=== PATIENT | male | born 1985 | race Two or more races ===

== ENCOUNTER 2023-04-23 19:15 | Inpatient (IN) | payer OTHER ==
[~2023-04-23] VITALS: Ht 180.3 cm; Wt 109.1 kg
[2023-04-23] MEDS ORDERED: METF-1185 PO (19:47)
[2023-04-23] MEDS ORDERED: INSLAN SQ (19:47)
[2023-04-23] MEDS ORDERED: INSREG SQ (19:47)
[2023-04-23] MEDS ORDERED: SODIUM CHLORIDE 0.9% 1,000 ML IV ONE (20:15)
[2023-04-23 20:16] LABS: GLUCOMETER DEV NAME(LOC) ER.6
[2023-04-23 20:42] LABS: BASOPHILS % (AUTO) 0.3 % (0.0-2.0); EOSINOPHILS % (AUTO) 0.2 % (1.0-6.0); HEMATOCRIT 43.3 % (41-53); HEMOGLOBIN 14.5 g/dL (13.5-17.5); LYMPHOCYTES # (AUTO) 1.1 K/uL (1.0-4.8); LYMPHOCYTES % (AUTO) 11.6 % (22.0-44.0); MEAN CORPUSCULAR HEMOGLOBIN 26.8 pg (26.0-34.0); MEAN CORPUSCULAR HGB CONC 33.4 G/dL (31.0-37.0); MEAN CORPUSCULAR VOLUME 80 fL (80-100); MONOCYTES # (AUTO) 0.7 K/uL (0.1-1.0); MONOCYTES % (AUTO) 7.7 % (2.0-9.0); NEUTROPHILS # (AUTO) 7.5 K/uL (1.8-7.7); NEUTROPHILS % (AUTO) 80.2 % (40.0-70.0); PLATELET COUNT (AUTO) 203 K/uL (150-450); RED BLOOD CELL COUNT(AUTO) 5.39 MIL/uL (4.50-5.90); RED CELL DISTRIBUTION WIDTH 15.7 % (11.5-14.5)
[2023-04-23] MEDS ORDERED: HYDROmorphone HCL 2 MG/ML SYRINGE IVP ONE (21:00)
[2023-04-23 21:02] LABS: ANION GAP 8 mmol/L (8-16); CALCIUM, TOTAL 9.1 mg/dL (8.8-10.5); CARBON DIOXIDE 29 mmol/L (22-29); CHLORIDE 101 mmol/L (98-107); CREATININE 0.94 mg/dL (0.60-1.30); GLOMERULAR FILTR. RATE CALC > 60 mL/min (>60); GLUCOSE,RANDOM 177 mg/dL (70-110); POTASSIUM 4.2 mmol/L (3.5-5.1); SODIUM SERUM 138 mmol/L (136-145)
[2023-04-23 21:07] LABS: ALANINE AMINOTRANSFERASE 32 U/L (12-78); ALBUMIN 3.7 g/dL (3.4-5.0); ALKALINE PHOSPHATASE 84 U/L (46-116); ASPARTATE AMINOTRANSFERASE 16 U/L (15-37); BILIRUBIN,TOTAL 0.8 mg/dL (0.1-1.0); LIPASE 28 U/L (16-77); TOTAL PROTEIN, SERUM 7.6 g/dL (6.4-8.2)
[2023-04-23] MEDS ORDERED: PIPERACILLIN/TAZO 3.375 GM/D5W 50 ML IV ONE (21:30)
[2023-04-23] MEDS ORDERED: ACETAMINOPHEN 325 MG TABLET PO PRN (22:00)
[2023-04-23] MEDS ORDERED: ONDANSETRON HCL 4 MG/2 ML VIAL IVP PRN (22:00)
[2023-04-23] MEDS ORDERED: MethylPREDNISolone SOD SUCC 125 MG/2 ML VIAL IVP ONE (22:15)
[2023-04-23] MEDS ORDERED: EPINEPHrine 1:1,000 [1 MG/ML] VIAL SQ ONE (22:15)
[2023-04-23] MEDS ORDERED: MetroNIDAZOLE 500 MG/NACL 100 ML IV ONE (22:30)
[2023-04-23 22:35] VITALS: BP 126/80; PULSE 100; RESP 20; TEMP 99.7
[2023-04-23] MEDS ORDERED: DEXTROSE 50%-WATER 25 GM/50 ML SYRINGE IVP PRN (23:15)
[2023-04-23] MEDS: RINGERS SOLUTION,LACTATED 1,000 ML IV SCH (23:29)
[2023-04-24] MEDS ORDERED: KETOROLAC TROMETHAMINE 15 MG/ML VIAL IVP ONE (01:45)
[2023-04-24] MEDS: INSULIN LISPRO 100 UNITS/ML SQ PRN ×5 (01:46→23:26)
[2023-04-24 05:04] VITALS: BP 109/72; PULSE 74; RESP 20; TEMP 97.7
[2023-04-24] MEDS ORDERED: *CLINICAL-LEVOFLOXACIN IVPB DOSING CLINICAL ONE (05:30)
[2023-04-24] MEDS: LEVOFLOXACIN 500 MG/D5% WATER 100 ML IV SCH (06:25)
[2023-04-24] MEDS ORDERED: RINGERS SOLUTION,LACTATED 1,000 ML IV ONE (06:43)
[2023-04-24] MEDS ORDERED: LIDOCAINE 2%/EPI 1:200,000/PF 20 ML VIAL ONE (06:59)
[2023-04-24] MEDS ORDERED: BUPIVACAINE HCL 0.5% 50 ML VIAL ONE (06:59)
[2023-04-24] MEDS ORDERED: MORPHINE SULFATE 2 MG/ML SYRINGE IVP PRN (08:15)
[2023-04-24] MEDS ORDERED: ACETAMINOPHEN 500 MG TABLET PO PRN (08:15)
[2023-04-24] MEDS ORDERED: MEPERIDINE-PF 25 MG/ML VIAL IVP PRN (08:15)
[2023-04-24] MEDS ORDERED: FentaNYL CITRATE PF 100 MCG/2 ML VIAL IVP PRN (08:15)
[2023-04-24] MEDS ORDERED: HYDROmorphone HCL 2 MG/ML SYRINGE IVP PRN (08:15)
[2023-04-24] MEDS ORDERED: ONDANSETRON HCL 4 MG/2 ML VIAL IVP PRN (08:15)
[2023-04-24] MEDS: DOCUSATE SODIUM 100 MG CAPSULE PO SCH ×2 (09:29→20:37)
[2023-04-24] MEDS: MetroNIDAZOLE 500 MG TABLET PO SCH ×3 (09:30→23:24)
[2023-04-24] MEDS: RINGERS SOLUTION,LACTATED 1,000 ML IV SCH ×2 (09:30→20:41)
[2023-04-24 10:51] VITALS: BP 114/74; PULSE 76; RESP 20; TEMP 97.8
[2023-04-24] MEDS: HYDROCODONE/ACETAMINOPHEN 5-325 MG TABLET PO PRN ×2 (11:33→23:38)
[2023-04-24 11:51] LABS: GLUCOMETER DEV NAME(LOC) 4E.2
[2023-04-24 11:51] LABS: GLUCOMETER DEV NAME(LOC) 4E.2
[2023-04-24 11:51] LABS: GLUCOMETER DEV NAME(LOC) 4E.2
[2023-04-24] MEDS ORDERED: SUGAMMADEX SODIUM 200 MG/2 ML VIAL IVP ONE (12:00)
[2023-04-24] MEDS ORDERED: ACETAMINOPHEN/ISO-OSM 1000 MG/100 ML BOTTLE IV ONE (12:00)
[2023-04-24] MEDS ORDERED: ONDANSETRON HCL 4 MG/2 ML VIAL IVP ONE (12:00)
[2023-04-24] MEDS ORDERED: KETOROLAC TROMETHAMINE 60 MG/2 ML VIAL IM ONE (12:00)
[2023-04-24] MEDS ORDERED: FentaNYL CITRATE PF 100 MCG/2 ML VIAL IVP ONE (12:00)
[2023-04-24] MEDS ORDERED: LIDOCAINE/PF 2% 5 ML VIAL IM ONE (12:00)
[2023-04-24] MEDS ORDERED: DEXAMETHASONE SOD PHOS 4 MG/ML VIAL IVP ONE (12:00)
[2023-04-24] MEDS ORDERED: PROPOFOL 1% 20 ML VIAL IVP ONE (12:00)
[2023-04-24] MEDS ORDERED: 0.9% SODIUM CHLORIDE 10 ML VIAL IVP ONE (12:00)
[2023-04-24] MEDS ORDERED: MIDAZOLAM HCL 2 MG/2 ML VIAL IVP ONE (12:00)
[2023-04-24] MEDS ORDERED: ROCURONIUM BROMIDE 10 MG/ML 5 ML VIAL IVP ONE (12:00)
[2023-04-24 12:07] LABS: APPEARANCE,URINE CLEAR (CLEAR); BILIRUBIN,URINE NEGATIVE (NEGATIVE); GLUCOSE, URINE (UA) >=1000 mg/dL (NEGATIVE); KETONES,URINE 40-60 mg/dL (NEGATIVE); LEUKOCYTE ESTERASE ,URINE NEGATIVE (NEGATIVE); NITRATE,URINE NEGATIVE (NEGATIVE); OCCULT BLOOD,URINE NEGATIVE (NEGATIVE); PROTEIN,URINE TRACE mg/dL (NEGATIVE); SPECIFIC GRAVITIY, URINE 1.036 (1.003-1.030); UROBILINOGEN,URINE <=1.0 mg/dL (<=1.0)
[2023-04-24 13:08] LABS: BACTERIA,URINE None Seen /HPF (None Seen); RBC,URINE None Seen /HPF (0-2); SQUAMOUS EPITHELIAL CELL,UR None Seen /LPF (None Seen); WBC,URINE None Seen /HPF (0-5)
[2023-04-24 15:43] VITALS: BP 120/78; PULSE 73; RESP 17; TEMP 97.4
[2023-04-24 17:21] LABS: GLUCOMETER DEV NAME(LOC) 6N.2B
[2023-04-24] MEDS ORDERED: OXYGEN THERAPY IH SCH (20:00)
[2023-04-24 20:31] LABS: GLUCOMETER DEV NAME(LOC) 6N.2B
[2023-04-24 20:42] VITALS: BP 112/68; PULSE 77; RESP 18; TEMP 98.8
[2023-04-24] MEDS: IBUPROFEN 800 MG TABLET PO PRN (20:59)
[2023-04-24] MEDS ORDERED: INSULIN GLARGINE,HUM.REC.ANLOG 100 UNITS/ML SQ SCH (22:00)
[2023-04-24] MEDS: HEPARIN SODIUM,PORCINE 5,000 UNITS/ML VIAL SQ SCH (23:24)
[2023-04-25 05:05] VITALS: BP 107/73; PULSE 72; RESP 18; TEMP 98.6
[2023-04-25] MEDS: LEVOFLOXACIN 500 MG/D5% WATER 100 ML IV SCH (06:07)
[2023-04-25] MEDS: INSULIN LISPRO 100 UNITS/ML SQ PRN ×2 (06:08→13:07)
[2023-04-25 06:51] LABS: GLUCOMETER DEV NAME(LOC) 6N.1
[2023-04-25 07:07] LABS: HEPATITIS C AB (EIA) Non Reactive (Non Reactive)
[2023-04-25 07:43] VITALS: BP 104/68; PULSE 72; RESP 18; TEMP 98.7
[2023-04-25 07:51] LABS: GLUCOMETER DEV NAME(LOC) 6N.2B
[2023-04-25] MEDS: RINGERS SOLUTION,LACTATED 1,000 ML IV SCH (09:00)
[2023-04-25] MEDS: DOCUSATE SODIUM 100 MG CAPSULE PO SCH (09:05)
[2023-04-25] MEDS: MetroNIDAZOLE 500 MG TABLET PO SCH (09:05)
[2023-04-25] MEDS: IBUPROFEN 800 MG TABLET PO PRN (09:06)
[2023-04-25] MEDS: HEPARIN SODIUM,PORCINE 5,000 UNITS/ML VIAL SQ SCH (09:06)
[2023-04-25 18:41] LABS: GLUCOMETER DEV NAME(LOC) 4E.2
[2023-04-25] MEDS ORDERED: INSULIN GLARGINE,HUM.REC.ANLOG 100 UNITS/ML SQ SCH (21:00)
== END 2023-04-25 15:26 | DRG 340 ==
LOC: EMS 19:17 → 6S 22:03
PROVIDERS: ADMIT Internal Medicine; ATTEND Internal Medicine
PROC: 0DTJ4ZZ Resection of Appendix, Percutaneous Endoscopic Approach (ICD-10-PCS; principal; 2023-04-24 07:30)
DX: K35.32 Acute appendicitis with perforation, localized peritonitis, and gangrene, without abscess (principal); E11.65 Type 2 diabetes mellitus with hyperglycemia; E66.9 Obesity, unspecified; K76.0 Fatty (change of) liver, not elsewhere classified; T36.0X5A Adverse effect of penicillins, initial encounter; K59.00 Constipation, unspecified; Z68.33 Body mass index [BMI] 33.0-33.9, adult; Y92.89 Other specified places as the place of occurrence of the external cause; Z79.4 Long term (current) use of insulin; Z90.49 Acquired absence of other specified parts of digestive tract; Z79.84 Long term (current) use of oral hypoglycemic drugs; Z88.1 Allergy status to other antibiotic agents
CPT/HCPCS: 74176; 80053; 81001; 82962; 83690; 85025; 86803; 87040; 87081; 87340; 88304; 93005; 99291; J0131; J0171; J1100; J1170; J1644; J1815; J1885; J1956; J2250; J2405; J2543; J2704; J2930; J3010; J3490; J7120; Q9967